=== PATIENT | male | born 2000 | race Caucasian/White ===

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

== ENCOUNTER 2018-06-13 19:09 | Emergency (ER) | payer BC ==
[~2018-06-13] VITALS: Wt 61.3 kg
[~2018-06-13 19:09] MED LIST changes: +CYCL10TA7 PO; +FLUT9.9S NASAL; +IBUP-1541 PO; -IBUP400T22 PO; +LORA1TAB54 PO
[2018-06-13 19:23] VITALS: BP 118/71; PULSE 70; RESP 20
[2018-06-13] MEDS ORDERED: ACYC15OI6 TOP (22:15)
--- NOTE | 2018-06-14 02:45 | ERD ---
ER Documentation Chief Complaint Chief Complaint mouth sores x10 days HPI 17-year-old male presents for mouth sores times 10 days. He states that he told the intake nurse that he had headache because he is embarrassed. Patient has had cold sores for the past 5 years and he usually gets them once yearly. However he states that the ulcers are prolonged this time. He denies fevers or chills. ROS All systems reviewed and are negative except as per history of present illness. Medications Home Meds Active Scripts Acyclovir* (Acyclovir* Oint) 5%-15 Gm Oint, 1 APPLIC TOP 5 TIMES DAILY for cold sores for 7 Days, #1 TUB Prov:ERWIN PALMER 06/13/18 Fluticasone Propionate (Flonase Allergy Relief) 9.9 Ml [place].susp, 1 SPRAY NASAL BID, #1 BOTTLE TO EACH NOSTRIL Prov:DAHLIA,FERCHO 07/15/17 Loratadine/Pseudoephedrine* (Claritin-D* 12 Hr) 5-120 Mg Tab.er.12h, 1 TAB PO QAM for 14 Days, #14 TAB.SA Prov:DAHLIAFERCHO 07/15/17 Ibuprofen* (Motrin*) 600 Mg Tab, 600 MG PO Q6, #30 TAB Prov:BARBIE SMITH PA-C 05/19/17 Cyclobenzaprine Hcl* (Cyclobenzaprine Hcl*) 10 Mg Tablet, 10 MG PO BID, #20 TAB Prov:BARBIE SMITH PA-C 05/19/17 Phenol* (Chloraseptic* [place]) 177 Ml [place].pump, 2 SPRAY MT Q2H PRN for SORE THROAT for 7 Days, BOTTLE Prov:NAYELI PICKARD MD 09/23/15 Ibuprofen* (Motrin*) 600 Mg Tab, 600 MG PO Q6H PRN for PAIN AND OR ELEVATED TEMP, #30 TAB Prov:NAYELI PICKARD MD 09/23/15 Ibuprofen* (Ibuprofen*) 400 Mg Tablet, 400 MG PO QID, #30 TAB Prov:KARI MUHAMMAD NP 02/12/15 Allergies Allergies: Coded Allergies: No Known Allergy (Unverified , 06/13/18) PMhx/Soc Medical and Surgical Hx: pt denies Medical Hx History of Surgery: Yes (appendectomy) Anesthesia Reaction: No Hx Neurological Disorder: No Hx Respiratory Disorders: No Hx Cardiac Disorders: No Hx Psychiatric Problems: No Hx Miscellaneous Medical Probl: No Hx Alcohol Use: No Hx Substance Use: No Hx Tobacco Use: No Smoking Status: Never smoker Physical Exam Vitals Vital Signs Date Temp Pulse Resp B/P (MAP) Pulse Ox O2 O2 Flow FiO2 Time Delivery Rate 06/13/18 98.6 70 20 118/71 98 19:23 (87) Physical Exam Const: No acute distress Head: Atraumatic Eyes: Normal Conjunctiva ENT: Normal External Ears and Nose, lips sores noted x3. Circular lesions. Neck: Full range of motion. No meningismus. Resp: Clear to auscultation bilaterally Cardio: Regular rate and rhythm, no murmurs Skin: No petechiae or rashes Ext: No cyanosis, or edema Neur: Awake and alert Psych: Normal Mood and Affect Procedures/MDM Medical Decision Making: Differential diagnosis includes but not limited to herpes lesion, stomatitis, contact dermatitis. Patient appeared well on examination. Physical examination consistent with herpes lip lesions. Patient given prescription for acyclovir ointment. Patient advised to follow up with PCP in 1-2 days. Patient advised to return to ED for new or worsening symptoms. Patient stable on discharge from the ED. Disclaimer: Inadvertent spelling and grammatical errors are likely due to EHR/dictation software use and do not reflect on the overall quality of patient care. Also, please note that the electronic time recorded on this note does not necessarily reflect the actual time of the patient encounter. Departure Diagnosis: Primary Impression: Cold sore Condition: Fair Patient Instructions: Herpes Labialis, Hsv: Type I, Acyclovir Topical ointment Referrals: PENDING SALE TO [facility] YOU HAVE RECEIVED A MEDICAL SCREENING EXAM AND THE RESULTS INDICATE THAT YOU DO NOT HAVE A CONDITION THAT REQUIRES URGENT TREATMENT IN THE EMERGENCY DEPARTMENT. FURTHER EVALUATION AND TREATMENT OF YOUR CONDITION CAN WAIT UNTIL YOU ARE SEEN IN YOUR DOCTORS OFFICE WITHIN THE NEXT 1-2 DAYS. IT IS YOUR RESPONSIBILITY TO MAKE AN APPOINTMENT FOR FOLOW-UP CARE. IF YOU HAVE A PRIMARY DOCTOR --you should call your primary doctor and schedule an appointment IF YOU DO NOT HAVE A PRIMARY DOCTOR YOU CAN CALL OUR PHYSICIAN REFERRAL HOTLINE AT IF YOU CAN NOT AFFORD TO SEE A PHYSICIAN YOU CAN CHOSE FROM THE FOLLOWING [facility] [id number] [facility]. [facility] [address] [facility] [facility] [address] [facility] [facility] [address] [facility]. [facility] [address] [facility]. [facility] [address] Additional Instructions: Call your primary care doctor TOMORROW for an appointment during the next 1-2 days.See the doctor sooner or return here if your condition worsens before your appointment time. ERWIN PALMER DO Jun 14, 2018 02:44
== END 2018-06-13 22:32 | disposition home or self-care (01) ==
LOC: FTE 19:09
DX: B00.1 Herpesviral vesicular dermatitis (principal)
CPT/HCPCS: 99283